=== PATIENT | female | born 1980 | race Two or more races ===

== ENCOUNTER 2024-12-20 21:46 | Emergency (ER) | payer OTHER ==
[~2024-12-20] VITALS: Ht 157.5 cm; Wt 53.1 kg
[2024-12-20] MEDS: IV NS 0.9% 1,000 ML BAG IV ONE (22:15)
[2024-12-20 22:30] LABS: PLATELET COUNT (AUTO) 182 K/uL (150-450); RED BLOOD CELL COUNT(AUTO) 4.30 MIL/uL (4.0-5.2); RED CELL DISTRIBUTION WIDTH 14.2 % (11.5-15.0); WHITE BLOOD COUNT (AUTO) 9.1 K/uL (4.3-11.0)
[2024-12-20] MEDS ORDERED: METOPROLOL TARTRATE INJ 5 MG/5 ML AMPUL ONE (22:36)
[2024-12-20] MEDS ORDERED: FAMOTIDINE/PF INJ 20 MG/2 ML VIAL IV ONE (22:36)
[2024-12-20] MEDS ORDERED: ACETAMINOPHEN ES 500 MG TABLET ONE (22:36)
[2024-12-20 22:37] LABS: CALCIUM, SERUM 8.4 mg/dL (8.5-10.1); CREATININE 0.7 mg/dL (0.6-1.3); SODIUM SERUM 141 mmol/L (136-145); UREA NITROGEN, BLOOD 12 mg/dL (7-18)
[2024-12-20 22:53] LABS: ASPARTATE AMINOTRANSFERASE 18 U/L (15-37); NT-PRO BNP 135 pg/mL (0-125); TOTAL PROTEIN, SERUM 7.3 g/dL (6.4-8.2)
[2024-12-20 23:05] LABS: PREGNANCY TEST SERUM QUAN 0.0 mIU/mL (0-6)
[2024-12-20] MEDS: ACETAMINOPHEN ES 500 MG TABLET PO ONE (23:12)
[2024-12-20] MEDS: FAMOTIDINE/PF INJ 20 MG/2 ML VIAL IV ONE (23:12)
[2024-12-20] MEDS: METOPROLOL TARTRATE INJ 5 MG/5 ML AMPUL IV ONE (23:22)
[2024-12-20] MEDS ORDERED: PRED50TA PO (23:57)
[2024-12-21 05:38] VITALS: BP 93/65; TEMP 99.8; O2SAT 99
== END 2024-12-21 05:39 | disposition home or self-care (01) ==
LOC: ER 21:48
DX: R00.2 Palpitations (principal); T50.905A Adverse effect of unspecified drugs, medicaments and biological substances, initial encounter; R06.02 Shortness of breath; Z79.52 Long term (current) use of systemic steroids; Y92.89 Other specified places as the place of occurrence of the external cause
CPT/HCPCS: 99285; 96374; 96375; 71045; 96361; 93005; 85025; 80048; 80076; 83735; 36415; 84443; 84484; 83880; 84702; J2919; J1200; J3490; J1308